=== PATIENT | male | born 1965 | race Caucasian/White ===

== ENCOUNTER 2017-10-15 12:10 | Emergency (ER) | payer OTHER, BC ==
[2017-10-15 12:46] VITALS: BP 161/95
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
== END 2017-10-15 13:00 | disposition home or self-care (01) ==
LOC: ER 12:10
DX: I10 Essential (primary) hypertension (principal)
CPT/HCPCS: 99283